=== PATIENT | male | born 1990 | race Caucasian/White ===

== ENCOUNTER → 2017-07-22 | Outpatient (CLI) | payer OTHER ==
--- NOTE | 2017-07-22 14:21 | DIAGNOSTIC IMAGING REPORT ---
RIGHT ELBOW MIN 3 VIEWS CLINICAL HISTORY: Recurrent dislocation. COMPARISON: None FINDINGS: Alignment of the right elbow is anatomic. No acute fracture or joint effusion is present. There is moderate to marked joint space narrowing of the radiocapitellar articulation with chronic deformity of the capitellum, and radial head. There is osteophytosis and sclerosis. There is also moderate osteophytosis of the ulnotrochlear articulation. The findings are chronic. No suspicious osseous lesion is present. A possible 1.3 cm subchondral lucency is noted within the capitellum. IMPRESSION: 1. No acute fracture or joint effusion of the right elbow. 2. Moderate to marked joint space narrowing of the radiocarpal articulation with chronic deformity of the radial head and capitellum. Moderate osteophytosis of the ulnotrochlear articulation. The findings suggest severe arthritis, greater than expected for age. 3. 1.3 cm apparent subchondral lucency within the capitellum is probably artifactual although an osteochondral lesion could appear similar. Electronically signed by: Yohan Can M.D. 07/22/2017 2:19 PM Dictated Date/Time: 07/22/2017 2:14 PM
== END | disposition home or self-care (01) ==
LOC: C.RDSM 11:09
PROVIDERS: ATTEND Family Medicine
DX: M24.421 Recurrent dislocation, right elbow (principal)